=== PATIENT | female | born 1995 | race Caucasian/White ===

== ENCOUNTER 2023-07-10 19:39 | Inpatient (IN) | payer BC ==
[~2023-07-10] VITALS: Ht 152.4 cm; Wt 74.5 kg
[2023-07-10 19:45] VITALS: BP 109/78; PULSE 80; TEMP 98.2
--- NOTE | 2023-07-10 19:45 | NUR ---
PT PRESENTS TO L&D WITH C/O SROM AT 0900 THIS AM CLEAR FLUID. PT STATES SHE WS HAVING CTX'S AT HOME 5-8 MINS APART BUT THEY HAVE SPACED OUT SINCE SHE GOT HERE. THEY ARE NOW 7-9 MINS. PT CHANGED INTO GOWN. NITRAZINE TEST POSITIVE X 2. SVE /+1. CERVIX SOFT AND POSTERIOR. SMALL AMT BLOODY SHOW NOTED ON GLOVE. PT IS G1, 38.3 WEEKS. SHE WANTS TO GO NATURAL AND DOES NOT WANT AN EPIDURAL. SHE WANTS TO AMB IN THE ROOM AND USE THE BIRTHING BALL MUCH POSSIBLE.
[2023-07-10 20:00] VITALS: TEMP 98.2
[2023-07-10] MEDS ORDERED: LR & Oxytocin 500 ML IV SCH (20:00)
[2023-07-10] MEDS ORDERED: LR 1,000 ML IV SCH (20:00)
--- NOTE | 2023-07-10 20:02 | NUR ---
DR COTTON OPINION POLLS SURVEY WORKER NOTIFIED THAT PT IS HERE, SVE, FHR, CTX'S SROM FLUID CLEAR. PTS REQUESTS OF WANTING TO GO NATURAL. PT STATES SHE IS OK WITH PITOCIN. VS STABLE. PT IS HAVING IRREGULAR CTX'S AT 7-8 MINS, MILD BY PALPATION. ORDERS NOTED TO ADMIT, START IV, PT MAY HAVE EPIDURAL, START PITOCIN.
--- NOTE | 2023-07-10 20:05 | NUR ---
CALLED DR COTTON BACK TO LET HER KNOW PT HAD CHANGED HER MIND AND WANTS TO WAIT ON THE PITOCIN FOR A FEW HOURS. SHE WANTS TO AMB AND USE THE BALL TO SEE IF SHE CAN GET CTX'S CLOSER LIKE THEY WERE WHEN SHE WAS AT HOME. DR COTTON STATES THAT IS FINE.
--- NOTE | 2023-07-10 20:19 | NUR ---
PT OFF THE MONITOR TO GO TO THE BR. THEN ATTEMPTED TO START THE WIRELESS MONITORING SO PT COULD BE AMBULATORY. MONITOR WAS NOT CONNECTING. WILL DO INTERMITTENT MONITORING. PT STATES SHE IS FINE WITH THAT.
[2023-07-10 20:31] LABS: BASO % 0.2 % (0.0-2.0); EOS % 0.4 % (0.0-4.0); GRAN % 73.7 % (42.2-75.2); HEMOGLOBIN 11.4 g/dl (12.5-16.0); LYMPH % 18.2 % (20.0-51.0); MEAN CELL VOLUME 88 fl (80.0-100.0); MEAN CORPUSCULAR HEMOGLOBIN 30 pg (27-31); MEAN CORPUSCULAR HGB CONC 34 g/dl (33.0-37.0); MEAN PLATELET VOLUME 10.6 fl (7.4-10.4); MONO # 0.8 K/mm3 (0.1-0.6); MONO % 6.9 % (1.7-9.3); PLATELET COUNT 252 K/mm3 (130-400); RED BLOOD COUNT 3.85 M/mm3 (4.10-5.30); REDCELL DISTRIBUTION WIDTH-CV 12.9 % (11.5-14.5)
[2023-07-10 20:34] LABS: HEMATOCRIT 33.9 % (37.0-47.0)
[2023-07-10 22:00] VITALS: BP 113/70; PULSE 64; TEMP 98.1
--- NOTE | 2023-07-10 22:00 | NUR ---
2141 PT OUT OF THE BATHROOM, MONITORS BACK ON FOR INTERMITTENT MONITORING. FHR 135, ACCELS NOTED, NO DECELS. PT STATE SHE FELT A COUPLE CTX'S WHILE OFF THE MONITOR BUT NOTHING PAINFUL. 2204 PT OFF THE MNOITORS AGAIN AND SHE IS GOING TO AMB IN THE [place] WITH HER AND STAINING MACHINE OPERATOR.
[2023-07-10 23:00] VITALS: BP 110/69; PULSE 68; TEMP 98.1
--- NOTE | 2023-07-10 23:33 | NUR ---
PT UP TO AMB TO BR TO VOID. PT STATES THE CTX'S ARE FEELING A LITTLE STRONGER AND A LITTLE CLOSER TOGETHER.
[2023-07-11] VITALS (43 sets, daily range): BP systolic 56–140; BP diastolic 53–86; PULSE 58–114; TEMP 97.8–98.7
--- NOTE | 2023-07-11 01:00 | NUR ---
PT UP TP BR TO VOID. PT GOING TO AMB IN THE [place] AGAIN WITH SPOUSE AND BODY AND FRAME TECHNICIAN. PT STATES SHE IS DOING WELL SO FAR.
--- NOTE | 2023-07-11 02:05 | NUR ---
PT SITTING UP IN THE BED, SHE STATES THE CTX'S ARE GETTING MUCH MORE PAINFUL. AND SHE IS GOING TO GO WALKING AGAIN. HER FAMILY IS HERE FROM [place] NOW.
--- NOTE | 2023-07-11 02:30 | NUR ---
PT UP WALKING THE HALLS WITH HER AND FLOOR PERSON. PT IS STOPPING DURING CONTRACTIONS TO BREATH THROUGH THEM. 0330 PT IS BACK FROM WALKING IN THE HALLS. IN TO USE THE BR THEN BACK ON THE MONITORS.
--- NOTE | 2023-07-11 02:38 | NUR ---
PT UP AMB AND USING THE BATHROOM. RECREATION THERAPY TEACHER AND PT'S ASSISTING HER.
--- NOTE | 2023-07-11 04:23 | NUR ---
PT SITTING UP ON THE SIDE OF THE BED. SHE IS BREATHING HEAVY THROUGH CONTRACTIONS AND STATES THEY ARE GETTING STRONGER. TALKED TO PT ABOUT CHECKING HER CERVIX AT 0500 AND IF SHE HASN'T CHANGED MUCH THEN WE NEED TO GET SOME PITOCIN STARTED. PT ASKED IF SHE CAN WALK SOME MORE AND MAYBE USE A STEP STOOL TO DO SOME STEPS IN THE ROOM. I OBTAINED A STEP STOOL FOR HER AND THE METAL CRAFTS TEACHER WILL ASSIST HER WITH MOVING AND WALKING.
--- NOTE | 2023-07-11 04:40 | NUR ---
0440 PT AMB TO BR TO VOID. BACK TO BED AND MONITORS ON.
--- NOTE | 2023-07-11 05:52 | NUR ---
PT MOANING AND BREATHING WITH CONTRACTIONS. PT ROLLED OVER TO HER RIGHT LATERAL WITH PEANUT BALL BETWEEN LEGS. FHR MONITORS ADJUSTED.
--- NOTE | 2023-07-11 06:08 | NUR ---
DR COTTON PHONED IN FOR AN UPDATE. INFORMED HER THAT PT DID NOT WANT THE PITOCIN STARTED AT MIDNIGHT BECAUSE SHE WS WAITING FOR HER FAMILY AND SNOW GROOMER TO GET HERE FROM [place]. HER FAMILY ARRIVED ABOUT 0300, PT HAS BEEN AMB, ON BIRTHING BALL. PEANUT BALL ALL NIGHT, SVE /=1, PITOCIN STARTED AT 0530. FHR CATEGORY 1. AFEBRILE, VS STABLE. no new orders.
[2023-07-11] MEDS ORDERED: PRENATAL TABLET PO (07:05)
[2023-07-11] MEDS ORDERED: Gentamicin/Sodium Chloride 100 ML IV ONE (08:00)
[2023-07-11] MEDS ORDERED: oxyCODONE 5 MG TAB PO PRN (14:30)
[2023-07-11] MEDS ORDERED: Magnes Hydrox (MOM) 80 MG/ML 30 ML CUP PO PRN (14:30)
[2023-07-11] MEDS ORDERED: Mag/Al Hydrox/Simeth Susp 30 ML CUP PO PRN (14:30)
[2023-07-11] MEDS ORDERED: Witch Hazel 50% Pads Bulk TUB TP PRN (14:30)
[2023-07-11] MEDS ORDERED: Naloxone 0.4 MG/ML VIAL IV PRN (14:30)
[2023-07-11] MEDS ORDERED: Phenylephrine/Mineral Oil/Petrolatum 57 GM TUBE RC PRN (14:30)
[2023-07-11] MEDS ORDERED: Ibuprofen 600 MG TAB PO SCH (14:30)
[2023-07-11] MEDS ORDERED: Measles/Mumps/Rubella Virus Vaccine Live w Diluent 0.5 ML VIAL SQ SCH (14:30)
[2023-07-11] MEDS ORDERED: Acetaminophen 500 MG TAB PO SCH (14:30)
[2023-07-11] MEDS ORDERED: Loratadine 10 MG TAB PO PRN (14:30)
--- NOTE | 2023-07-11 14:50 | NUR ---
1220 DR GRANDE CALLED BY THIS RN FOR IMPENDING DELIVERY 1230 DR GRANDE BEDSIDE AND CALLS PT COMPLETE.ADVISED THIS RN TO BEGIN COACHING THE PT THROUGH PUSHING. 1349 OF VIABLE MALE .STRONG CRY NOTED AT DELIVERY. PLACED ON MATERNAL ABDOMEN.CORD CLAMPED AND CUT BY FATHER OF THE BABY. 1354 OF INTACT PLACENTA.PITOCIN BOLUS INFUSING PER PROTOCOL.LIDOCAINE ADMINISTERED.2ND DEGREE LACERATION REPAIRED BY DR GRANDE. PT TOELRATED PROCEDURE WELL. LOCHIA WITHIN NORMAL LIMITS.FUNDUS FIRM AT THE UMBILICUS.
[2023-07-11] MEDS ORDERED: Gentamicin/Sodium Chloride 50 ML IV SCH (16:00)
[2023-07-11] MEDS ORDERED: Sennosides/Docusate 8.6-50 MG TAB PO SCH (17:00)
[2023-07-11] MEDS ORDERED: traZODone 50 MG TAB PO PRN (21:00)
[2023-07-12 02:35] VITALS: BP 69/42; PULSE 64; TEMP 98.2
--- NOTE | 2023-07-12 02:35 | NUR ---
0235- NURSE TO ROOM FOR VITAL SIGNS. OFFERED TO WAKE BABY FOR AND ENCOURAGED PT TO GET UP TO BATHROOM. PT DOES NOT GET UP TO BATHROOM. 0245- NURSE DONE WITH BABY VITALS AND WEIGHT. PT STILL HAS NOT GOTTEN UP TO BATHROOM. BABY TO MOTHER FOR SKIN TO SKIN. 0255- BABY SLEEPY AND STILL GAGGING, NOT INTERESTED IN EATING. NURSE OFFERS TO ASSIST MOM WITH CHANGING BABY AND SWADDLING. PT STATES " I DON'T FEEL LIKE GETTING UP, SO CAN YOU JUST DO IT." ENCOURAGED PT TO GET UP TO BATHROOM BEFORE LYING BACK DOWN. PT STATES " I DON'T THINK I COULD GO NOW ANYWAY AND I DON'T WANT TO GET UP." BABY CARES PROVIDED AND PT DENIES FURTHER NEEDS AT THIS TIME.
[2023-07-12 08:00] VITALS: BP 94/49; PULSE 67; TEMP 98
[2023-07-12] MEDS ORDERED: IBU600 MG PO (08:59)
[2023-07-12] MEDS ORDERED: TYLENOL 500MG500 MG PO (08:59)
--- NOTE | 2023-07-12 09:50 | NUR ---
Initial visit attempt; Patient sleeping, Panel Sewer left card offering congratulations and God's blessings for the of their son. Information regarding the availability of Spiritual Care is also included.
== END 2023-07-12 16:00 | disposition home or self-care (01) | DRG 560 ==
LOC: LDRO 19:39 → OB 19:56 → LDR 19:56 → OB 07-11 15:00
PROVIDERS: Obstetrics & Gynecology; ADMIT Obstetrics & Gynecology
PROC: 10E0XZZ Delivery of Products of Conception, External Approach (ICD-10-PCS; principal; 2023-07-11)
PROC: 0KQM0ZZ Repair Perineum Muscle, Open Approach (ICD-10-PCS; 2023-07-11)
DX: O70.1 Second degree perineal laceration during delivery (principal); Z37.0 Single live birth; Z3A.38 38 weeks gestation of pregnancy; Z28.39 Other underimmunization status
CPT/HCPCS: J0290; J1580; J2590; J7120